=== PATIENT | female | born 1950 | race Caucasian/White ===

== ENCOUNTER 2016-12-07 15:31 | Emergency (ER) | payer BC, MEDICARE ==
--- NOTE | 2016-12-07 16:13 | ED.ADGEN ---
Past Medical History Past Medical History: CAD, GERD, Hypertension Additional Past Medical Histor: Multiple Sclerosis Past Surgical History: Other Alcohol Use: None Drug Use: None Adult General Chief Complaint Chief Complaint: OTHER COMPLAINTS HPI HPI Patient is a 66 year old female presents emergency department by EMS from the detention. Patient has a history of chronic leg pain and dizziness secondary to her multiple sclerosis. Today she was experiencing her usual leg pain and dizziness and a set of taking the time to find a nurse she decided to call 911. Upon arrival here her symptoms have resolved. She has no acute or new complaint. She denies any chest pain or headache. She tells me she has not had anything to eat since breakfast and that she is thirsty. Review of Systems Review of Systems Constitutional: Denies fever or chills. [] Eyes: Denies change in visual acuity. [] HENT: Denies nasal congestion or sore throat. [] Respiratory: Denies cough or shortness of breath. [] Cardiovascular: Denies chest pain or edema. [] GI: Denies abdominal pain, nausea, vomiting, bloody stools or diarrhea. [] : Denies dysuria. [] Musculoskeletal: Denies back pain or joint pain. [] Integument: Denies rash. [] Neurologic: Denies headache, focal weakness or sensory changes. [] Endocrine: Denies polyuria or polydipsia. [] Lymphatic: Denies swollen glands. [] Psychiatric: Denies depression or anxiety. [] Allergies Allergies Allergies Coded Allergies Type Severity Reaction Last Updated Verified meperidine Allergy Intermediate 12/07/16 Yes methylprednisolone Allergy Intermediate 12/07/16 Yes tetracycline Allergy Intermediate 12/07/16 Yes Physical Exam Physical Exam Constitutional: Well developed, well nourished, no acute distress, non-toxic appearance. [] HENT: Normocephalic, atraumatic, bilateral external ears normal, oropharynx moist, no oral exudates, nose normal. [] Eyes: PERRLA, EOMI, conjunctiva normal, no discharge. [] Neck: Normal range of motion, no tenderness, supple, no stridor. [] Cardiovascular:Heart rate regular rhythm, no murmur [] Lungs & Thorax: Bilateral breath sounds clear to auscultation [] Abdomen: Bowel sounds normal, soft, no tenderness, no masses, no pulsatile masses. [] Skin: Warm, dry, no erythema, no rash. [] Back: No tenderness, no CVA tenderness. [] Extremities: No tenderness, no cyanosis, no clubbing, ROM intact, no edema. [] Neurologic: Alert and oriented X 3, normal motor function, normal sensory function, no focal deficits noted. [] Psychologic: Affect normal, judgement normal, mood normal. [] Current Patient Data Vital Signs Vital Signs Date Time Temp Pulse Resp B/P Pulse Ox O2 Delivery O2 Flow Rate FiO2 12/07/16 16:30 76 24 159/85 95 12/07/16 15:31 97.9 Room Air 97.9 EKG EKG EKG interpreted by me, sinus rhythm, 74 beats for minute, leftward axis, no ST segment elevation. [] Radiology/Procedures Radiology/Procedures [] Course & Med Decision Making Course & Med Decision Making Pertinent Labs and Imaging studies reviewed. (See chart for details) Patient EKG is reassuring here. She has had no symptoms. We were able to give her a meal tray and something to drink. She will be discharged back to the detention. [] Dragon Disclaimer Dragon Disclaimer This electronic medical record was generated, in whole or in part, using a voice recognition dictation system. ERNIE DUNLAP MD Dec 07, 2016 16:13
[2016-12-07 16:30] VITALS: BP 159/85
--- NOTE | 2016-12-07 16:38 | EKG ---
[facility] [address] [place] [id number] Test Date: 2016-12-07 Test Time: 16:15:18 Pat Name: ARSALAN BARROSO Department: Room: Gender: F Campaign Coordinator: : 1950 Requested By: ERNIE DUNLAP Order Number: [id number] Reading MD: Deepika Oakley Measurements Intervals [place] Rate: 74 P: 34 MT: 194 QRS: -13 QRSD: 84 T: 11 QT: 374 QTc: 416 Interpretive Statements SINUS RHYTHM LEFTWARD AXIS OTHERWISE NORMAL ECG RI6.01 No previous ECG available for comparison Electronically Signed On 12-08-2016 19:18:23 CDT by Deepika Oakley
== END 2016-12-07 17:00 | disposition home or self-care (01) ==
LOC: ER 15:31
DX: M79.605 Pain in left leg (principal); M79.604 Pain in right leg; G35 Multiple sclerosis; G89.29 Other chronic pain; I10 Essential (primary) hypertension; I25.10 Atherosclerotic heart disease of native coronary artery without angina pectoris; K21.9 Gastro-esophageal reflux disease without esophagitis; Z88.1 Allergy status to other antibiotic agents; Z88.8 Allergy status to other drugs, medicaments and biological substances
CPT/HCPCS: 93005; 99284-25

== ENCOUNTER 2018-01-29 10:12 | Inpatient (IN) | payer BC, MEDICARE ==
[2018-01-29] MEDS ORDERED: LIDOCAINE 2% 20 ML VIAL. (10:30)
[2018-01-29] MEDS ORDERED: IODIXANOL 320 MG/ML 100 ML VIAL. (10:30)
[2018-01-29] MEDS ORDERED: LACTULOSE 20 GM/30 ML SOLUTION. PO (13:45)
[2018-01-29] MEDS ORDERED: ACETAMINOPHEN/CODEINE 300/30MG TABLET. PO (13:45)
[2018-01-29] MEDS: NYSTATIN 100,000 UNIT/GM TOPICAL CREAM 15GM TUBE. TP ×3 (14:00→21:29)
[2018-01-29] MEDS: MUPIROCIN 2 % TOPICAL CREAM 15GM TUBE. TP ×3 (14:00→21:29)
[2018-01-29] MEDS ORDERED: MIDAZOLAM HCL/PF 2 MG/2 ML VIAL. (14:39)
[2018-01-29] MEDS ORDERED: fentaNYL PF VIAL 100 MCG/2 ML VIAL (14:39)
[2018-01-29] MEDS ORDERED: HEPARIN for IV BOLUS 10,000 UNIT/10 ML VIAL. (15:12)
[2018-01-29] MEDS ORDERED: TIROFIBAN 5MG -0.9% NS 100 ML IV (15:32)
[2018-01-29] MEDS ORDERED: PRASUGREL 10 MG TABLET. (15:46)
[2018-01-29] MEDS ORDERED: NITROGLYCERIN 200 MCG/2 ML SYRINGE FOR CATH/VASC LAB. (15:47)
[2018-01-29] MEDS: TIROFIBAN 5MG -0.9% NS 100 ML IV (16:09)
[2018-01-29] MEDS: LIDOCAINE 2% 20 ML VIAL. IJ (16:10)
[2018-01-29] MEDS: IODIXANOL 320 MG/ML 100 ML VIAL. IART (16:10)
[2018-01-29] MEDS: PRASUGREL 10 MG TABLET. PO (16:10)
[2018-01-29] MEDS: MIDAZOLAM HCL/PF 2 MG/2 ML VIAL. IV (16:11)
[2018-01-29] MEDS: fentaNYL PF VIAL 100 MCG/2 ML VIAL IV (16:11)
[2018-01-29] MEDS: HEPARIN for IV BOLUS 10,000 UNIT/10 ML VIAL. IV (16:12)
[2018-01-29] MEDS: NITROGLYCERIN 200 MCG/2 ML SYRINGE FOR CATH/VASC LAB. ICAR (16:12)
[2018-01-29] MEDS: ACETAMINOPHEN/CODEINE 300/30MG TABLET. PO (17:00)
[2018-01-29] MEDS ORDERED: CARVEDILOL 3.125 MG TABLET. PO (17:00)
[2018-01-29] MEDS ORDERED: fentaNYL PF VIAL 100 MCG/2 ML VIAL IV (17:15)
[2018-01-29] MEDS ORDERED: ACETAMINOPHEN 325 MG TABLET. PO (17:15)
[2018-01-29] MEDS ORDERED: LIDOCAINE 2% 100 MG/5 ML SYRINGE. IV (17:15)
[2018-01-29] MEDS ORDERED: ATROPINE 0.5 MG/5 ML DISP.SYRINGE. IV (17:15)
[2018-01-29] MEDS ORDERED: AMIODARONE 150 MG in IV DEXTROSE 5% 100 ML IV (17:15)
[2018-01-29] MEDS ORDERED: NITROGLYCERIN SUBLINGUAL 0.4 MG BOTTLE OF 25. SL ×2 (17:15→17:30)
[2018-01-29] MEDS ORDERED: 0.9 % SODIUM CHLORIDE 10 ML DISP.SYRIN. IV (17:15)
[2018-01-29] MEDS: LACTULOSE 20 GM/30 ML SOLUTION. PO (17:49)
[2018-01-29] MEDS: CARVEDILOL 3.125 MG TABLET. PO (17:50)
[2018-01-29] MEDS: NYSTATIN 100,000 UNIT/GM TOPICAL OINTMENT 15GM TUBE. TP (21:00)
[2018-01-29] MEDS ORDERED: NON FORMULARY ITEM PO (21:00)
[2018-01-29] MEDS: ATORVASTATIN CALCIUM 40 MG TABLET. PO (21:27)
[2018-01-29] MEDS: BACLOFEN 10 MG TABLET. PO (21:27)
[2018-01-29] MEDS: PREGABALIN 50 MG CAPSULE PO (21:27)
[2018-01-29] MEDS: tiZANidine 4 MG TABLET. PO (21:27)
[2018-01-29] MEDS: LACOSAMIDE 50 MG TABLET PO (21:27)
[2018-01-29] MEDS: NYSTATIN TOPICAL POWDER 15GM BOTTLE. TP (21:28)
[2018-01-29] MEDS: diphenhydrAMINE ORAL ELIXIR 12.5 MG/5 ML ML PO (22:38)
[2018-01-30] MEDS: LACTULOSE 20 GM/30 ML SOLUTION. PO ×4 (00:52→18:00)
[2018-01-30] MEDS: ONDANSETRON ODT 4 MG TAB.RAPDIS. PO ×2 (06:05→14:29)
[2018-01-30] MEDS ORDERED: ASPIRIN 325 MG TABLET PO (08:00)
[2018-01-30] MEDS: ASPIRIN ENTERIC COATED 81 MG TABLET.DR. PO (08:25)
[2018-01-30] MEDS: CARVEDILOL 3.125 MG TABLET. PO ×2 (08:27→17:33)
[2018-01-30] MEDS: LACOSAMIDE 50 MG TABLET PO (08:32)
[2018-01-30] MEDS: tiZANidine 4 MG TABLET. PO ×2 (08:32→14:29)
[2018-01-30] MEDS: PRASUGREL 10 MG TABLET. PO (08:32)
[2018-01-30] MEDS: BACLOFEN 10 MG TABLET. PO ×2 (08:32→14:29)
[2018-01-30] MEDS: NYSTATIN 100,000 UNIT/GM TOPICAL CREAM 15GM TUBE. TP ×3 (08:33→17:00)
[2018-01-30] MEDS: PREGABALIN 50 MG CAPSULE PO ×2 (08:33→14:30)
[2018-01-30] MEDS: MUPIROCIN 2 % TOPICAL CREAM 15GM TUBE. TP ×3 (08:33→12:30)
[2018-01-30] MEDS: NYSTATIN 100,000 UNIT/GM TOPICAL OINTMENT 15GM TUBE. TP (08:35)
[2018-01-30] MEDS: NYSTATIN TOPICAL POWDER 15GM BOTTLE. TP (08:36)
[2018-01-30 13:29] LABS: ANION GAP 5 (6-14); BLOOD UREA NITROGEN 21 mg/dL (7-20); CALCIUM 8.2 mg/dL (8.5-10.1); CARBON DIOXIDE 30 mmol/L (21-32); CHLORIDE 101 mmol/L (98-107); CREATININE 1.1 mg/dL (0.6-1.0); GFR 49.5; GLUCOSE 149 mg/dL (70-99); POTASSIUM 4.3 mmol/L (3.5-5.1); SODIUM 136 mmol/L (136-145)
== END 2018-01-30 19:20 | disposition home or self-care (01) | DRG 247 ==
LOC: 2 NORTH 10:12
PROC: 027034Z Dilation of Coronary Artery, One Artery with Drug-eluting Intraluminal Device, Percutaneous Approach (ICD-10-PCS; principal; 2018-01-29)
PROC: 4A023N7 Measurement of Cardiac Sampling and Pressure, Left Heart, Percutaneous Approach (ICD-10-PCS; 2018-01-29)
PROC: B2151ZZ Fluoroscopy of Left Heart using Low Osmolar Contrast (ICD-10-PCS; 2018-01-29)
PROC: B2111ZZ Fluoroscopy of Multiple Coronary Arteries using Low Osmolar Contrast (ICD-10-PCS; 2018-01-29)
DX: I25.110 Atherosclerotic heart disease of native coronary artery with unstable angina pectoris (principal); J81.1 Chronic pulmonary edema; G35 Multiple sclerosis; I48.91 Unspecified atrial fibrillation; E78.5 Hyperlipidemia, unspecified; I10 Essential (primary) hypertension; K21.9 Gastro-esophageal reflux disease without esophagitis; R09.02 Hypoxemia; Z79.82 Long term (current) use of aspirin; Z86.711 Personal history of pulmonary embolism; Z87.01 Personal history of pneumonia (recurrent); Z87.891 Personal history of nicotine dependence; Z90.710 Acquired absence of both cervix and uterus; Z95.5 Presence of coronary angioplasty implant and graft; Z88.8 Allergy status to other drugs, medicaments and biological substances
CPT/HCPCS: 36415; 80048; 92928; 93458; 93571; 99152; 99153; C1725; C1769; C1771; C1874; C1887; C1892; G0269; J1644; J2250; J3010; J3490; Q0162